=== PATIENT | female | born 1990 | race Caucasian/White ===

== ENCOUNTER 2019-04-27 05:44 | Inpatient (IN) | payer BC, OTHER ==
[2019-04-27 06:23] VITALS: BMI 30.5
[2019-04-27] MEDS ORDERED: FLU VACC QS2019-20(6MOS UP)/PF 60 MCG/0.5 ML SYRINGE IM ONE (06:30)
[2019-04-27] MEDS ORDERED: Ondansetron PF 4 MG/2 ML Vial IVP PRN ×3 (06:56→18:49)
[2019-04-27] MEDS ORDERED: hydrALAZINE 20 MG/ML VIAL SLOW IVP PRN ×2 (06:56→18:49)
[2019-04-27] MEDS ORDERED: Ibuprofen 800 MG TAB PO PRN (06:56)
[2019-04-27] MEDS ORDERED: Promethazine HCl 25 MG/ML VIAL IM PRN ×3 (06:56→18:49)
[2019-04-27] MEDS ORDERED: Butorphanol Tartrate 1 MG/ML VIAL SLOW IVP PRN (06:56)
[2019-04-27] MEDS ORDERED: NS / Oxytocin 40 units/1000ml 1,000 ML IV PRN (06:56)
[2019-04-27] MEDS ORDERED: Lidocaine 1% (PF) 30 ML VIAL SC PRN (06:56)
[2019-04-27] MEDS ORDERED: Acetaminophen 500 MG TAB PO PRN (06:56)
[2019-04-27] MEDS ORDERED: NS w/ Oxytocin 10 units 500 ML IV SCH (07:00)
--- NOTE | 2019-04-27 07:04 | PDOC.FPROB ---
FMR OB H&P: HPI - History of Present Illness Chief Complaint: Contractions Indentification: 29 yo @ 38 weeks History of Present Illness: 29 yo @ 38 weeks with PMH of chronic medications (not requiring medications ) and asthma presents for painful contractions every 2-3 minutes since midnight. Pt reports pos movmenet, no vag dc, lof, vag bleeding. Pt reports uncomplicated thus far. Denies Headache, cp, sob, ruq/ epigastric pain and changes in vision. Primary Care Physician: Enrico FMR OB H&P: Current - Care : 1 Para: 0 Gestational age: 38 Due date: 05/11/2019 - OB Labs Blood type: A RH: negative Antibody Screen: negative HIV: negative RPR: negative HepBsAg: negative Rubella: immune Quad screen: unknown Urine drug screen: not done Gonorrhea: negative Chlamydia: negative Pap Smear: unknown FMR OB H&P: History - Past Medical History PMH: Chronic hypertension Asthma - OB History OB History: G1, no complications this - Surgical History Sx History: Tonsillectomy Breast augmentation - Social History Social History: Denies alcohol, tobacco, and drug use - Family History Family History: Denies FMR OB H&P: Medications - Current Home Medications: Medication Instructions Recorded Confirmed Type Fluticasone/Salmeterol [Advair 1 inhaler PO DAILY 04/27/19 04/27/19 History Diskus 100/50] Vit37/Iron/Folic Acid 1 tab PO DAILY 04/27/19 04/27/19 History [Prenata Chewable Tablet] Allergies/Adverse Reactions: Allergies Allergy/AdvReac Type Severity Reaction Status Date / Time No Known Allergies Allergy Verified 04/27/19 06:17 FMR OB H&P: ROS - Review of Systems General: denies: fever/chills, fatigue Eyes: denies: vision changes, double vision, scotomas Cardiovascular: denies: chest pain, edema Respiratory: denies: shortness of breath Gastrointestinal: denies: abdominal pain, nausea, vomiting, diarrhea Genitourinary (Female): reports: contractions. denies: vaginal discharge, vaginal pain, vaginal bleeding, vaginal pressure Musculoskeletal: denies: swelling Neurologic: denies: headache FMR OB H&P: Vital Signs - Maternal Vital signs: 157/90 - Heart Tones Baseline: 130 Variability: moderate Acceleration: present Deceleration: absent Category: category 1 [place] contractions every: 1-2 minutes, palpable FMR OB H&P: Physical Exam - Physical Exam General: NAD, awake, alert and oriented HEENT: normocephalic and atraumatic, PERRLA, EOMI, conjunctiva clear, no scleral icterus, grossly normal vision, grossly normal hearing Neck: trachea midline, no JVD Heart: RRR, normal S1/S2, no murmurs/rubs/gallops, pulses present, no edema General: CTAB, no respiratory distress, good air movement, no rales/rhonchi, no wheezing Abdomen: soft, gravid, non-tender Neurological: no focal deficit Skin: no rash Lymphatic: no unusual bruising or bleeding - Pelvic Exam Cervix: no blood (per nurse check) SVE: Zavala score: 8 Membranes: Intact Presentation: Vertex FMR OB H&P: A/P - Problem List (1) Chronic hypertension affecting Current Visit: Yes Status: Acute Code(s): O10.919 - UNSP PRE-EXISTING HTN COMP , UNSP TRIMESTER (2) Asthma Current Visit: Yes Status: Acute Code(s): J45.909 - UNSPECIFIED ASTHMA, UNCOMPLICATED (3) Current Visit: Yes Status: Acute Qualifiers: Weeks of gestation: 38 weeks Qualified Code(s): Z3A.38 - 38 weeks gestation of (4) Rh negative state in antepartum period Current Visit: Yes Status: Acute Code(s): O26.899 - OTH RELATED CONDITIONS, UNSPECIFIED TRIMESTER; Z67.91 - UNSPECIFIED BLOOD TYPE, RH NEGATIVE Disposition: Stable, in labor. Admit to l&d Discussion: Date/Time: 04/27/19 0701 1) TIUP in labor - pt gregg q1-2 minutes - cervical check /1 - will admit to l&d 2) CHTN affecting - most recent BP 157/90 - 140s over 90s in office per pt - will check cmp, cbc and urine pr/cr ratio - magnesium if evidence of preeclampsia/ severe range pressures - currently denies severe features, labs pending - avoid methergine 3) h/o asthma: - controlled with prn albuterol and advair - avoid hemabate 4) RH neg - rhogam pp as indicated Dispo: stable, admit to l&d and check pre-e labs. Anesthesia consulted for epidural placement. This H&P was discussed with Dr. Davidson who agree with the above documentation and plan.
[2019-04-27] MEDS: Lactated Ringer's 1,000 ML IV SCH ×2 (07:30→11:55)
[2019-04-27 07:42] LABS: Mean Corpuscular HGB CONC 34.4 g/dL (32.0-36.0); Mean Corpuscular Hemoglobin 29.1 pg (27.0-31.0); Mean Corpuscular Volume 84.5 fL (78.0-98.0); Mean Platelet Volume 7.5 fL (7.4-10.4); Platelet Count 267 thou/uL (130-400); Red Blood Cell (RBC) Count 4.14 mill/uL (4.20-5.40); White Blood Cell (WBC) Count 16.4 thou/uL (4.8-10.8)
[2019-04-27 08:15] LABS: ALT (SGPT) Less than 7 U/L (8-55); AST (SGOT) 14 U/L (5-34); Albumin 3.6 g/dL (3.5-5.0); Alkaline Phosphatase 124 U/L (40-110); Anion Gap 19 mmol/L (10-20); BUN (Urea Nitrogen) 7 mg/dL (7.0-18.7); Bilirubin, Total 0.7 mg/dL (0.2-1.2); Calc. Creatinine Clearance 193 mL/min (70-130); Calcium 9.5 mg/dL (7.8-10.44); Carbon Dioxide 16 mmol/L (22-29); Chloride 106 mmol/L (98-107); Estimated GFR-MDRD Greater than 90; Globulin 2.8 g/dL (2.4-3.5); Glucose 89 mg/dL (70-105); Potassium 4.4 mmol/L (3.5-5.1); Protein, Total 6.4 g/dL (6.0-8.3); Sodium 137 mmol/L (136-145)
[2019-04-27 08:22] LABS: HBSAg Index 0.18 S/CO (0-0.99); Hep B Surf Ag Non-Reactive S/CO (NonReactive)
[2019-04-27 08:47] LABS: Syphilis Antibody Nonreactive (Nonreactive); Syphilis Antibody Index 0.03 S/CO (<1.00 Non-Reactive)
[2019-04-27] MEDS ORDERED: Fentanyl 4 mcg/Bup 0.1% Cadd 100 ML ONE ×2 (10:01→16:28)
[2019-04-27] MEDS ORDERED: Naloxone HCl 0.4 mg/ml Vial IVP PRN ×2 (10:26)
[2019-04-27] MEDS ORDERED: ePHEDrine/0.9% NaCl/PF SYRINGE 50 mg/10 ml SLOW IVP PRN (10:26)
[2019-04-27] MEDS ORDERED: Lactated Ringer's 500 ML IV PRN (10:26)
[2019-04-27] MEDS ORDERED: Acetaminophen 325 MG TAB PO PRN (10:26)
[2019-04-27] MEDS ORDERED: diphenhydrAMINE 50 MG/ML VIAL IVP PRN (10:26)
[2019-04-27] MEDS ORDERED: Communication Order-Pharmacy FS SCH (10:30)
[2019-04-27] MEDS ORDERED: Fentanyl 4 mcg/Bupivacaine 0.1% Cassette 100 ML EPIDURAL SCH (10:30)
[2019-04-27] MEDS ORDERED: NS / Oxytocin 40 units/1000ml 1,000 ML ONE (10:41)
[2019-04-27] MEDS ORDERED: Lidocaine 1% (PF) 30 ML VIAL ONE (10:41)
[2019-04-27] MEDS ORDERED: Bupivacaine HCl 0.25%/Epi 0.0005/PF 10 ML VIAL FS ONE (11:11)
[2019-04-27 12:56] LABS: Creatinine, Urine 68.81 mg/dL (47-110); Protein, Urine Random Quant Less than 10 mg/dL (1-14)
[2019-04-27] MEDS: Dextrose 5%-Lactated Ringers 1,000 ML IV SCH ×2 (16:43→16:44)
[2019-04-27] MEDS: Lactated Ringer's 500 ML IV SCH ×2 (16:43→18:49)
[2019-04-27] MEDS ORDERED: Preparation H Ointment 28 GM TUBE PR PRN (18:49)
[2019-04-27] MEDS ORDERED: NS / Oxytocin 40 units/1000ml 1,000 ML IV SCH (18:49)
[2019-04-27] MEDS ORDERED: Milk Of Magnesia 30 ML UDCUP PO PRN (18:49)
[2019-04-27] MEDS ORDERED: Bisacodyl 10 MG SUPP PR PRN (18:49)
[2019-04-27] MEDS ORDERED: Zolpidem Tartrate 5 MG TAB PO PRN (18:49)
[2019-04-27] MEDS ORDERED: Misoprostol 200 MCG TAB VAG PRN (18:49)
[2019-04-27] MEDS ORDERED: Lanolin Ointment 7 GM TUBE TOP PRN (18:49)
[2019-04-27] MEDS ORDERED: diphenhydrAMINE 25 MG CAP PO PRN (18:49)
[2019-04-27] MEDS ORDERED: Benzocaine-Menthol 82.5 ML CAN TOP PRN (18:49)
[2019-04-27] MEDS ORDERED: HYDROcodone/Acetaminophen 5/325 mg Tablet PO PRN ×2 (18:49)
[2019-04-27] MEDS: Docusate Calcium (SURFAK) 240 MG CAP PO SCH (21:29)
[2019-04-27] MEDS: Ibuprofen 800 MG TAB PO SCH (21:30)
[2019-04-28] MEDS: Ibuprofen 800 MG TAB PO SCH ×3 (05:39→21:57)
[2019-04-28 06:00] LABS: Hemoglobin 9.3 g/dL (12.0-16.0); Mean Corpuscular HGB CONC 33.9 g/dL (32.0-36.0); Mean Corpuscular Hemoglobin 28.7 pg (27.0-31.0); Mean Corpuscular Volume 84.7 fL (78.0-98.0); Mean Platelet Volume 7.5 fL (7.4-10.4); Platelet Count 195 thou/uL (130-400); Red Blood Cell (RBC) Count 3.26 mill/uL (4.20-5.40); White Blood Cell (WBC) Count 11.7 thou/uL (4.8-10.8)
[2019-04-28] MEDS ORDERED: Varicella virus, LIVE 0.5 ML VIAL SC ONE (09:00)
[2019-04-28] MEDS ORDERED: Adacel (T-DAP) 0.5 ML SYRINGE IM ONE (09:00)
[2019-04-28] MEDS ORDERED: Measles/Mumps/Rubella 10 MCG/0.5 ML VIAL SC ONE (09:00)
[2019-04-28] MEDS: Docusate Calcium (SURFAK) 240 MG CAP PO SCH ×2 (10:31→21:57)
[2019-04-28] MEDS: Prenatal Vitamin 1 TAB PO SCH (10:31)
[2019-04-28] MEDS: Ferrous Sulfate 325 MG TAB PO SCH ×2 (10:31→21:56)
--- NOTE | 2019-04-28 16:28 | PDOC.PP ---
Post Progress Note Post Day #: 1 PO intake tolerated: yes Flatus: yes Ambulation: yes Vital Signs (12 hours) Temp Pulse Resp BP Pulse Ox 04/28/19 08:00 97 04/28/19 05:35 98.5 F 90 16 140/68 Weight Weight 195 lb - Physical Examination General: NAD Cardiovascular: no m/r/g, RRR Respiratory: clear to auscultation bilaterally Abdominal: + bowel sounds, lochia Extremities: negative homans (B) Neurological: no gross focal deficits (DC home planned next week) Psychiatric: A&Ox3, normal affect Result Diagrams: 04/28/19 05:36 04/27/19 07:28 Additional Labs: Post Labs Blood Type A NEGATIVE 04/27/19 07:50 Hep Bs Antigen Non-Reactive S/CO (NonReactive) 04/27/19 07:28
[2019-04-29] MEDS: Ibuprofen 800 MG TAB PO SCH ×2 (05:49→13:25)
[2019-04-29] MEDS: Prenatal Vitamin 1 TAB PO SCH (08:52)
[2019-04-29] MEDS: Docusate Calcium (SURFAK) 240 MG CAP PO SCH (08:52)
[2019-04-29] MEDS: Ferrous Sulfate 325 MG TAB PO SCH (08:54)
[2019-04-29 11:16] VITALS: BP 126/80; TEMP 98.2
--- NOTE | 2019-04-30 07:44 | DN ---
DATE OF PROCEDURE: 04/27/2019 PREOPERATIVE DIAGNOSIS: Intrauterine at 38 weeks with a history of chronic hypertension. POSTOPERATIVE DIAGNOSIS: Intrauterine at 38 weeks with a history of chronic hypertension. PROCEDURE PERFORMED: Spontaneous vaginal delivery over second-degree midline laceration with an extension into the lower posterior vaginal vault. FINDINGS: Viable female infant, weighing 3280 g or 7 pounds 4 ounces with Apgars 9 and 9. QUANTITATIVE BLOOD LOSS: 155 mL. COMPLICATIONS: None. PROCEDURE IN DETAIL: The patient presented to [facility] where she was admitted to the labor and delivery service. The patient underwent a normal and uneventful labor with normal cervical dilatation until she was found to be completely dilated. She was then allowed to push and was able to bring the baby down and delivered the baby in a vertex presentation without difficulties. Once the head delivered in occiput anterior position, the shoulders followed spontaneously along with the rest of the baby's body. Once out the baby's mouth and nose were bulb suctioned. The cord was clamped and cut and baby was handed to waiting attendants. Cord blood was collected. Gentle fundal massage was performed and the placenta delivered intact without problems. Hemostasis was assured. Quantitative blood loss was calculated. Inspection of the cervix, vaginal vault, and perineum did not reveal any lacerations needing suturing. Once again, hemostasis was within normal limits and the patient was allowed to recover in the labor and delivery room. Baby went to nursery. Job ID: [id number]
== END 2019-04-29 16:05 | disposition home or self-care (01) | DRG 807 ==
LOC: L&D/OP 05:44 → L&D 08:22 → 3SW 19:33
PROVIDERS: ADMIT Obstetrics & Gynecology; ATTEND Obstetrics & Gynecology
PROC: 10E0XZZ Delivery of Products of Conception, External Approach (ICD-10-PCS; principal; 2019-04-27)
PROC: 0KQM0ZZ Repair Perineum Muscle, Open Approach (ICD-10-PCS; 2019-04-27)
DX: O10.92 Unspecified pre-existing hypertension complicating childbirth (principal); Z37.0 Single live birth; O99.52 Diseases of the respiratory system complicating childbirth; Z3A.38 38 weeks gestation of pregnancy; J45.909 Unspecified asthma, uncomplicated
CPT/HCPCS: 36415; 51702; 80053; 82570; 84156; 85027; 85461; 86780; 86850; 86900; 86901; 87340; 90384; 96372; 99285; J0595; J2001; J2590